=== PATIENT | female | born 1980 | race Two or more races ===

== ENCOUNTER 2025-01-11 07:18 | Inpatient (IN) | payer OTHER ==
[~2025-01-11] VITALS: Ht 157.5 cm; Wt 74.8 kg
--- NOTE | 2025-01-11 07:34 | NUR ---
SE RECIBE PACIENTE ALERTA Y ORIENTADA X 3 , LA MISMA REFIERE ESTAR CON PREET TOS DESDE HACE VARIOS CARLSON ACOMPANADA DE FIEBRE EN EL HOGAR Y DOLOR DE VAISHALI , AL MOMENTO SIGNOS VITALES ESTABLES , SE UBICA EN FAST TRACK Y SE MANTIENE EN OBSERVACION POR CAMBIOS EN SINTOMATOLOGIA
[2025-01-11] MEDS ORDERED: CETIRIZINE HCL 5 MG/5 ML ML PO STA (09:33)
[2025-01-11] MEDS ORDERED: METHYLPREDNISOLONE SOD SUCC 40 MG VIAL IV STA (09:33)
[2025-01-11] MEDS ORDERED: GUAIFENESIN/DEXTROMETHORPHAN 100MG/10ML BLIST.PACK PO STA (09:33)
[2025-01-11] MEDS ORDERED: ALBUTEROL SULFATE 3 ML/2.5 MG AMPUL.NEB IH STA (09:34)
[2025-01-11] MEDS ORDERED: METHYLPREDNISOLONE SOD SUCC 40 MG VIAL ONE ×2 (09:37→22:09)
[2025-01-11] MEDS ORDERED: CETIRIZINE HCL 5MG/5ML BLIST.PACK PO ONE (09:38)
[2025-01-11] MEDS ORDERED: GUAIFENESIN/DEXTROMETHORPHAN 100MG/10ML BLIST.PACK PO ONE (09:38)
[2025-01-11] MEDS ORDERED: IPRATROPIUM BROMIDE 0.5 MG/2.5 ML AMPUL.NEB IH SCH (09:45)
[2025-01-11] MEDS ORDERED: IPRATROPIUM BROMIDE 0.5 MG/2.5 ML AMPUL.NEB IH ONE (09:50)
[2025-01-11] MEDS ORDERED: ALBUTEROL SULFATE 3 ML/2.5 MG AMPUL.NEB IH ONE (09:51)
--- NOTE | 2025-01-11 10:07 | NUR ---
SE EDUCA PACIENTE SOBRE TX Y ESTA REFIERE ENTENDER GUZMAN ACEPTAR. SE PROCEDE A COLECTAR MUESTRAS DE LABORATORIO Y ADMINISTRAR MEDICAMENTOS KRISTIN ORDEN MEDICA Y BAJO MEDIDAS ASEPTICAS.
[2025-01-11 10:15] LABS: BASO % 0.4 % (0.1-1.2); EOS # 0.24 (0.04-0.54); EOS % 3.1 % (0.7-7.0); LYMPH # 2.02 (1.18-3.74); LYMPH % 25.7 % (19.3-53.1); MEAN PLATELET VOLUME 9.00 fl (9.4-12.4); MONO # 0.58 (0.24-0.82); MONO % 7.4 % (4.7-12.5); NEUT # 4.79 (1.56-6.13); NEUT % 61.0 % (34.0-71.1); RED CELL DISTRIBUTION WIDTH 14.6 % (11.6-14.4)
[2025-01-11 10:50] LABS: COVID-19 AG NEGATIVE (NEGATIVE)
[2025-01-11 10:52] LABS: ALT/SGPT 20.0 U/L (12-78); AST/SGOT 8.0 U/L (15-37); BILIRUBIN TOTAL 0.45 mg/dL (0.3-1.2); BUN CREA RATIO 20.0 (7.0-25.0); CREATININE SERUM 0.61 mg/dL (0.55-1.02); GFR 107.56; GLOBULINA 4.3 G/DL (2.4-3.5); GLUCOSE FASTING 111.0 mg/dL (65-100); OSMOLALITY SERUM 282.0 MOSM/KG (275-295)
[2025-01-11] MEDS ORDERED: CEFTRIAXONE SODIUM 1,000 MG VIAL IV ONE (16:30)
[2025-01-11] MEDS ORDERED: MAGNESIUM SULFATE IN WATER 2 GM/50 ML PIGGYBAG IV ONE (16:30)
[2025-01-11] MEDS ORDERED: BENZONATATE 200 MG CAPSULE PO ONE (16:30)
[2025-01-11] MEDS ORDERED: LEVALBUTEROL HCL 1.25 MG/3 ML SOLUTION IH SCH (17:00)
[2025-01-11] MEDS ORDERED: IPRATROPIUM/ALBUTEROL SULFATE 3 ML AMPUL.NEB IH SCH (18:40)
[2025-01-11] MEDS ORDERED: METHYLPREDNISOLONE SOD SUCC 40 MG VIAL IV SCH (18:40)
[2025-01-11] MEDS ORDERED: 0.9 % SODIUM CHLORIDE 1,000 ML IV SCH (18:45)
[2025-01-11] MEDS ORDERED: ACETAMINOPHEN 325 MG TABLET PO PRN (18:45)
[2025-01-11] MEDS ORDERED: MAGNESIUM SULFATE IN WATER 50 ML IV NR (18:45)
[2025-01-11] MEDS ORDERED: BENZONATATE 100 MG CAPSULE PO SCH (19:00)
[2025-01-11] MEDS ORDERED: BENZONATATE 100 MG CAPSULE PO ONE (22:09)
[2025-01-11] MEDS ORDERED: MAGNESIUM SULFATE 50% 5,000 MG/10 ML VIAL ONE (22:09)
[2025-01-11] MEDS ORDERED: CEFTRIAXONE SODIUM 1,000 MG VIAL ONE (22:10)
[2025-01-11] MEDS ORDERED: IPRATROPIUM/ALBUTEROL SULFATE 3 ML AMPUL.NEB IH ONE (22:23)
[2025-01-12] MEDS ORDERED: ALBUTEROL SULFATE 3 ML/2.5 MG AMPUL.NEB IH ONE (00:26)
[2025-01-12] MEDS ORDERED: METHYLPREDNISOLONE SOD SUCC 40 MG VIAL ONE (02:04)
[2025-01-12 07:15] VITALS: BP 126/60; O2SAT 94
[2025-01-12] MEDS ORDERED: BENZONATATE 200 MG CAPSULE PO SCH (09:00)
[2025-01-12] MEDS ORDERED: BUDESONIDE 0.5 MG/2 ML AMPUL.NEB IH SCH (09:50)
[2025-01-12] MEDS ORDERED: IPRATROPIUM BROMIDE 0.5 MG/2.5 ML AMPUL.NEB IH SCH (14:33)
[2025-01-12] MEDS ORDERED: CEFTRIAXONE SODIUM 2,000 MG in DEXTROSE 5 % IN WATER 100 ML IV SCH (17:00)
[2025-01-12 21:32] VITALS: BP 129/79
[2025-01-13 02:01] VITALS: BP 131/79; O2SAT 96
[2025-01-13 09:18] VITALS: BP 143/82; O2SAT 98
[2025-01-13] MEDS ORDERED: PANTOPRAZOLE SODIUM 40 MG TABLET.DR PO SCH (19:50)
[2025-01-13] MEDS ORDERED: IPRATROPIUM/ALBUTEROL SULFATE 3 ML AMPUL.NEB IH SCH (21:00)
[2025-01-14] MEDS ORDERED: IPRATROPIUM BROMIDE 0.5 MG/2.5 ML AMPUL.NEB IH ONE (00:45)
[2025-01-14 03:33] VITALS: BP 146/82; O2SAT 94
[2025-01-14 08:22] VITALS: BP 155/74
[2025-01-14 11:40] LABS: BASO % 0.1 % (0.1-1.2); EOS # 0.00 (0.04-0.54); EOS % 0.0 % (0.7-7.0); LYMPH # 1.51 (1.18-3.74); LYMPH % 9.2 % (19.3-53.1); MEAN PLATELET VOLUME 8.80 fl (9.4-12.4); MONO # 0.90 (0.24-0.82); MONO % 5.5 % (4.7-12.5); NEUT # 13.68 (1.56-6.13); NEUT % 83.9 % (34.0-71.1); RED CELL DISTRIBUTION WIDTH 14.6 % (11.6-14.4)
[2025-01-14 12:04] LABS: BUN CREA RATIO 18.0 (7.0-25.0); CREATININE SERUM 0.71 mg/dL (0.55-1.02); GFR 90.27; GLUCOSE FASTING 156.0 mg/dL (65-100); OSMOLALITY SERUM 283.0 MOSM/KG (275-295)
[2025-01-14 16:18] VITALS: BP 122/72; O2SAT 93
[2025-01-15] MEDS ORDERED: METHYLPREDNISOLONE SOD SUCC 40 MG VIAL IV SCH (01:00)
[2025-01-15 01:53] VITALS: BP 120/70; O2SAT 92
[2025-01-15 09:41] VITALS: BP 131/83; O2SAT 95
== END 2025-01-15 16:09 | disposition home or self-care (01) | DRG 203 ==
LOC: ER 07:18 → SEC-K 19:21 → MEDI 19:21
PROVIDERS: General Practice; ADMIT Student in an Organized Health Care Education/Training Program; ATTEND Student in an Organized Health Care Education/Training Program
PROC: 3E0F7GC Introduction of Other Therapeutic Substance into Respiratory Tract, Via Natural or Artificial Opening (ICD-10-PCS; principal; 2025-01-11)
DX: J45.901 Unspecified asthma with (acute) exacerbation (principal)